=== PATIENT | male | born 1995 | race Caucasian/White ===

== ENCOUNTER 2021-11-16 14:45 | Emergency (ER) | payer SELFPAY ==
[~2021-11-16] VITALS: Ht 182.9 cm; Wt 98.6 kg
[2021-11-16 15:06] VITALS: BP 130/83
== END 2021-11-16 20:03 | disposition left against medical advice (07) ==
LOC: ER 14:45
DX: K08.89 Other specified disorders of teeth and supporting structures (principal); R22.0 Localized swelling, mass and lump, head; Z53.21 Procedure and treatment not carried out due to patient leaving prior to being seen by health care provider